=== PATIENT | male | born 1970 | race Caucasian/White ===

== ENCOUNTER 2018-07-12 13:03 | Outpatient (CLI) | payer MEDICAID, SELFPAY ==
[2018-07-16 15:04] LABS: Alternaria Tenuis IgE <0.35 kU/L; Aspergillus Fumigatus IgE <0.35 kU/L; Bermuda Grass IgE <0.35 kU/L; Cat Epithelium IgE <0.35 kU/L; Cladosporium IgE <0.35 kU/L; Cocklebur IgE <0.35 kU/L; Cockroach IgE <0.35 kU/L; Cottonwood IgE <0.35 kU/L; D Farinae IgE <0.35 kU/L; D Pteronyssinus IgE <0.35 kU/L; Dog Dander IgE <0.35 kU/L; Eastern Sycamore IgE <0.35 kU/L; Elm IgE <0.35 kU/L; Epicoccum purpurascens IgE <0.35 kU/L; Giant Ragweed IgE <0.35 kU/L; Lamb's Quarter IgE <0.35 kU/L; Oak IgE <0.35 kU/L; Penicillium chrysogenum IgE <0.35 kU/L; Red Sorrel IgE <0.35 kU/L; Rough Pigweed IgE <0.35 kU/L; Short Ragweed IgE <0.35 kU/L; Silver Birch IgE <0.35 kU/L; Stemphyllium IgE <0.35 kU/L; Timothy Grass IgE <0.35 kU/L; Walnut Tree IgE <0.35 kU/L
[2018-07-16 15:36] LABS: Wormwood IgE <0.35 kU/L
[2018-07-17 17:35] LABS: CLASS 0; Cedar Red IgE <0.10 kU/L (<0.35); Fusarium oxysporum/vasinfectum <0.35 kU/L (<0.35); Rhodotorula IgE <0.35 kU/L (<0.35)
== END 2018-07-12 13:23 ==
PROVIDERS: Visit Provider Otolaryngology Otolaryngology/Facial Plastic Surgery
DX: J31.0 Chronic rhinitis (principal)
CPT/HCPCS: 36415; 86003

== ENCOUNTER 2018-09-02 12:29 | Outpatient (REF) | payer MEDICAID, SELFPAY | END 2018-09-02 12:49 | LOC: LBN 12:29 | PROVIDERS: Visit Provider Otolaryngology Otolaryngology/Facial Plastic Surgery | DX: R69 Illness, unspecified (principal) | CPT/HCPCS: 87070; 87205 ==

== ENCOUNTER 2018-09-07 21:05 | Outpatient (REF) | payer MEDICAID, SELFPAY | END 2018-09-07 21:25 | LOC: LBN 21:05 | PROVIDERS: Visit Provider Otolaryngology Otolaryngology/Facial Plastic Surgery | DX: J31.0 Chronic rhinitis (principal); J32.1 Chronic frontal sinusitis | CPT/HCPCS: 87070; 87205 ==

== ENCOUNTER 2018-10-01 00:34 | Outpatient (CLI) | payer MEDICAID, SELFPAY ==
--- NOTE | 2018-10-01 14:21 | DI.CT_ITS ---
SYMPTOMS/DIAGNOSIS: CHRONIC RHINITIS, J31.[address]: Comparison is made with July,. There is near-complete opacification of the right frontal sinus. There is a small amount of mucus retention in the left frontal sinus. There is opacification of several ethmoid sinuses. There is mild mucus retention or mucosal thickening in both maxillary sinuses. The orbits are unremarkable. No gross abnormality is seen in the brain. IMPRESSION: Chronic sinus disease, greatest of the right frontal sinus.
--- NOTE | 2018-10-01 14:35 | DI.RAD_ITS ---
SYMPTOMS//DIAGNOSIS: COUGH, R05, POSTNASAL DRIP X 15 YEARS PA AND LATERAL CHEST: Comparison is made with August,. The heart size is normal. The lungs are normally inflated and appear clear. No infiltrate, effusion or peribronchial thickening is seen. IMPRESSION: Negative chest x-ray.
== END 2018-10-01 00:54 ==
PROVIDERS: Visit Provider Otolaryngology Otolaryngology/Facial Plastic Surgery
DX: J31.0 Chronic rhinitis (principal); J32.1 Chronic frontal sinusitis; R05 Cough; R09.82 Postnasal drip
CPT/HCPCS: 70486; 71046

== ENCOUNTER 2018-12-27 11:39 | Outpatient (REF) | payer MEDICAID, SELFPAY ==
[2018-12-27 22:01] LABS: Anion Gap 11.1 mmol/L (3-11); BUN 19 mg/dL (7-18); CO2 28.9 mmol/L (21.0-32.0); CREATININE 1.04 mg/dL (0.70-1.30); Calcium 9.2 mg/dL (8.5-10.1); Calculated LDL 163 mg/dL; Chloride 100 mmol/L (98-107); Cholesterol 233 mg/dL (50-200); Glucose 179 mg/dL (70-100); HDL Cholesterol 39 mg/dL (40-60); Potassium 3.4 mmol/L (3.5-5.1); Sodium 140 mmol/L (136-145); TSH (W/Ref FT4) 1.36 uIU/mL (0.358-3.74); Triglyceride 159 mg/dL (30-150)
== END 2018-12-27 11:59 ==
LOC: NCHCN 11:39
PROVIDERS: Visit Provider Internal Medicine
DX: I10 Essential (primary) hypertension (principal); R73.9 Hyperglycemia, unspecified
CPT/HCPCS: 80048; 80061; 83721; 84443

== ENCOUNTER 2019-01-17 10:08 | Outpatient (REF) | payer MEDICAID, SELFPAY ==
[2019-01-17 21:03] LABS: Abs Immature Grans 0.01 k/cumm (0.0-0.09); Absolute Basophil Count 0.05 k/cumm (0.0-0.2); Absolute Eosinophil Count 0.33 k/cumm (0.0-0.7); Absolute Monocyte Count 0.61 k/cumm (0.11-0.7); Absolute Neutrophil Count 5.17 k/cumm (1.2-6.7); Basophils % 0.6; HCT 47.9 % (40.0-50.0); HGB 16.4 g/dL (13.5-17.5); Immature Grans % 0.1; Lymphocytes % 24.5; Mean Corp. HGB Concentration 34.2 g/dL (32.0-36.0); Mean Corpuscular Hemoglobin 28.4 pg (27.0-33.0); Mean Corpuscular Volume 82.9 fL (80-95); Mean Platelet Volume 10.3 fL (8.0-11.0); Monocytes % 7.5; Neutrophils % 63.3; Platelet Count 295 x1000/uL (130-400); RBC 5.78 m/cumm (4.50-6.00); RBC Distribution Width 13.6 % (11.8-14.1); White Blood Cell Count 8.17 k/cumm (4.4-10.8)
[2019-01-17 21:13] LABS: C-Reactive Protein 0.42 mg/dL (0.0-0.3)
[2019-01-17 21:23] LABS: Hemoglobin A1C 7.7 % (4.5-6.2)
[2019-01-21 12:26] LABS: Lyme Ab w Rflx to Lyme Confirm Negative
== END 2019-01-17 10:28 ==
LOC: NCHCN 10:08
PROVIDERS: Visit Provider Internal Medicine
DX: R53.83 Other fatigue (principal); R73.9 Hyperglycemia, unspecified
CPT/HCPCS: 83036; 85025; 86140; 86618

== ENCOUNTER 2019-07-15 15:06 | Outpatient (REF) | payer SELFPAY ==
[2019-07-15 21:18] LABS: COMMENT (LAB VIEW ONLY) 181.75 mg/dL; Microalb ug/mg Crea 7.2 ug/mg Cr
== END 2019-07-15 15:26 ==
LOC: NCHCN 15:06
PROVIDERS: Visit Provider Internal Medicine
DX: E11.9 Type 2 diabetes mellitus without complications (principal); I10 Essential (primary) hypertension; E66.9 Obesity, unspecified; G89.29 Other chronic pain
CPT/HCPCS: 82043; 82570

== ENCOUNTER 2020-01-07 11:42 | Outpatient (REF) | payer BC, SELFPAY ==
[2020-01-07 21:35] LABS: Hemoglobin A1C 6.5 % (3.8-5.6)
[2020-01-07 21:38] LABS: ALT 89 U/L (16-63); AST 43 U/L (15-37); Albumin 3.9 g/dL (3.4-5.0); Alkaline Phosphatase 89 U/L (46-116); Anion Gap 9.3 mmol/L (3-11); BUN 12 mg/dL (7-18); Bilirubin, Total 0.4 mg/dL (0.2-1.0); CO2 29.7 mmol/L (21.0-32.0); CREATININE 0.95 mg/dL (0.70-1.30); Calcium 9.8 mg/dL (8.5-10.1); Calculated LDL 95 mg/dL (<100); Chloride 102 mmol/L (98-107); Cholesterol 155 mg/dL (<200); Glucose 154 mg/dL (74-106); HDL Cholesterol 46 mg/dL (40-60); Potassium 3.1 mmol/L (3.5-5.1); Sodium 141 mmol/L (136-145); Total Protein 7.2 g/dL (6.4-8.2); Triglyceride 72 mg/dL (<150)
== END 2020-01-07 12:02 ==
LOC: NCHCN 11:42
PROVIDERS: Visit Provider Internal Medicine
DX: E78.5 Hyperlipidemia, unspecified (principal); E11.9 Type 2 diabetes mellitus without complications; I10 Essential (primary) hypertension
CPT/HCPCS: 80053; 80061; 83036

== ENCOUNTER 2020-05-14 19:31 | Outpatient (REF) | payer MEDICAID, SELFPAY ==
[2020-05-14 21:28] LABS: Abs Immature Grans 0.03 10^3/uL (0.0-0.06); Absolute Basophil Count 0.07 10^3/uL (0.0-0.2); Absolute Lymphocyte Count 3.14 10^3/uL (1.2-3.4); Absolute Monocyte Count 0.74 10^3/uL (0.1-0.8); Absolute Neutrophil Count 6.24 10^3/uL (1.2-6.7); Basophils % 0.7; Eosinophils % 3.8; HGB 16.1 g/dL (13.5-17.5); Immature Grans % 0.3; Lymphocytes % 29.6; MCH 28.1 pg (27.0-33.0); MCHC 33.5 % (32.0-36.0); MCV 83.9 fL (80-95); MPV 10.6 fL (8.0-11.0); Neutrophils % 58.6; Nucleated RBC 0 %; Platelet Count 287 10^3/uL (130-400); RBC 5.72 10^6/uL (4.36-5.78); RDW 13.6 % (11.8-14.1); RDW-SD 41.5 fL; WBC 10.62 10^3/uL (4.4-10.8)
[2020-05-14 21:43] LABS: ALT 77 U/L (16-63); AST 36 U/L (15-37); Albumin 3.8 g/dL (3.4-5.0); Alkaline Phosphatase 92 U/L (46-116); Anion Gap 7.3 mmol/L (3-11); BUN 15 mg/dL (7-18); Bilirubin, Total 0.3 mg/dL (0.2-1.0); CO2 28.7 mmol/L (21.0-32.0); CREATININE 1.01 mg/dL (0.70-1.30); Calcium 9.4 mg/dL (8.5-10.1); Chloride 102 mmol/L (98-107); Glucose 145 mg/dL (74-106); Sodium 138 mmol/L (136-145); Total Protein 7.3 g/dL (6.4-8.2)
[2020-05-18 10:12] LABS: HBs Antibody, Quant 4.2 mIU/mL (See Note); Hepatitis B Surface Ab Negative (See Note)
[2020-05-18 10:15] LABS: Hepatitis B Surface Ag Negative (Negative)
[2020-05-18 10:47] LABS: Hepatitis C Ab w Rflx HCV PCR Negative (Negative)
== END 2020-05-14 19:51 ==
LOC: NCHCN 19:31
PROVIDERS: Visit Provider Internal Medicine
DX: I10 Essential (primary) hypertension (principal); R74.01 Elevation of levels of liver transaminase levels; E87.6 Hypokalemia
CPT/HCPCS: 80053; 86706; 86803; 87340; 85025

== ENCOUNTER 2020-06-24 18:30 | Outpatient (REF) | payer MEDICAID, SELFPAY ==
[2020-06-24 22:09] LABS: COMMENT (LAB VIEW ONLY) 150.07 mg/dL; Microalb ug/mg Crea 5.9 ug/mg Cr
== END 2020-06-24 18:50 ==
LOC: NCHCN 18:30
PROVIDERS: Visit Provider Internal Medicine
DX: E11.9 Type 2 diabetes mellitus without complications (principal)
CPT/HCPCS: 82043; 82570

== ENCOUNTER 2020-07-23 00:57 | Outpatient (CLI) | payer MEDICAID, SELFPAY ==
--- NOTE | 2020-07-23 | DI.US_ITS ---
EXAM: US ABDOMEN CLINICAL HISTORY: ELEVATED TRANSAMINASES, R74.0, ? FATTY LIVER,ELEVATED LFT'S TECHNIQUE: Ultrasound abdomen performed using standard protocol. COMPARISON: No exams were available for comparison FINDINGS: LIVER: Enlarged at 17.9 cm in length. There is extremely increased echogenicity and decreased throug h transmission consistent with severe hepatic steatosis. the posterior portions of the liver cannot be visualized. No focal liver lesions are seen.. GALLBLADDER: No evidence of cholelithiasis. No evidence of wall thickening. No pericholecystic fluid identified. CRAWFORD'S SIGN: Negative. BILIARY SYSTEM: No intrahepatic or extrahepatic biliary ductal dilation. KIDNEYS: Kidneys are symmetric in size. No evidence of renal calculi. No evidence of hydronephrosis. No renal mass or cyst identified. PANCREAS: Normal where visualized. SPLEEN: Not enlarged. ABDOMINAL AORTA AND IVC: Visualized portions normal caliber. ASCITES: None seen. IMPRESSION: Severe hepatic steatosis. DATA REPOSITORY:
== END 2020-07-23 00:58 ==
PROVIDERS: PCP Internal Medicine; Visit Provider Internal Medicine
DX: K76.0 Fatty (change of) liver, not elsewhere classified (principal)
CPT/HCPCS: 76700

== ENCOUNTER 2020-12-10 17:08 | Outpatient (REF) | payer MEDICAID, SELFPAY ==
[2020-12-10 22:02] LABS: Abs Immature Grans 0.03 10^3/uL (0.0-0.06); Absolute Basophil Count 0.07 10^3/uL (0.0-0.2); Absolute Eosinophil Count 0.16 10^3/uL (0.0-0.7); Absolute Monocyte Count 0.57 10^3/uL (0.1-0.8); Absolute Neutrophil Count 6.37 10^3/uL (1.2-6.7); Basophils % 0.8; Eosinophils % 1.7; HCT 44.9 % (40.0-50.0); HGB 15.1 g/dL (13.5-17.5); Immature Grans % 0.3; Lymphocytes % 22.6; MCH 28.7 pg (27.0-33.0); MCHC 33.6 % (32.0-36.0); MCV 85.4 fL (80-95); MPV 10.4 fL (8.0-11.0); Monocytes % 6.1; Neutrophils % 68.5; Nucleated RBC 0 %; Platelet Count 284 10^3/uL (130-400); RBC 5.26 10^6/uL (4.36-5.78); RDW 13.3 % (11.8-14.1); RDW-SD 41.8 fL
[2020-12-10 22:07] LABS: Iron 95 ug/dL (65-175); Total Iron Binding Capacity 318 ug/dL (250-450); Transferrin Sat 30 % (20-55)
[2020-12-10 22:13] LABS: ALT 106 U/L (16-63); AST 50 U/L (15-37); Albumin 3.8 g/dL (3.4-5.0); Alkaline Phosphatase 85 U/L (46-116); Bilirubin, Direct 0.1 mg/dL (0.0-0.2); Bilirubin, Total 0.5 mg/dL (0.2-1.0); Total Protein 7.1 g/dL (6.4-8.2)
[2020-12-10 22:22] LABS: Hemoglobin A1C 6.4 % (<5.7)
[2020-12-10 22:36] LABS: Ferritin 170 ng/mL (26-388)
[2020-12-15 08:55] LABS: Alpha 1 Antitrypsin,Serum 143 mg/dL (90-200)
[2020-12-15 08:56] LABS: Hep A Total Ab w Rflx IgM Negative (Negative); Hep B Core Antibody Negative (Negative); Hepatitis B Surface Ag Negative (Negative)
[2020-12-15 08:58] LABS: ANA Interpretation Positive (Negative); ANA Titer Pattern 1:80 Speckled; HBs Antibody, Quant 30.9 mIU/mL (See Note); Hepatitis B Surface Ab Positive (See Note)
[2020-12-15 12:21] LABS: Ceruloplasmin 26.2 mg/dL
[2020-12-15 13:41] LABS: Smooth Muscle Ab Screen Negative (Negative)
== END 2020-12-10 17:09 | disposition home or self-care (01) ==
LOC: LBN 17:08
PROVIDERS: Physician Assistant Medical; PCP Internal Medicine; Visit Provider Internal Medicine
DX: R74.8 Abnormal levels of other serum enzymes (principal); K76.0 Fatty (change of) liver, not elsewhere classified; E11.9 Type 2 diabetes mellitus without complications; Z11.59 Encounter for screening for other viral diseases
CPT/HCPCS: 80076; 82390; 86704; 86706; 86709; 87340; 82103; 82728; 83036; 83540; 83550; 85025; 86038; 86255

== ENCOUNTER 2021-06-07 21:41 | Outpatient (REF) | payer MEDICAID, SELFPAY ==
[2021-06-07 21:20] LABS: COMMENT (LAB VIEW ONLY) 225.56 mg/dL; Microalb ug/mg Crea 9.6 ug/mg Cr
== END 2021-06-07 21:42 | disposition home or self-care (01) ==
LOC: NCHCN 21:41
PROVIDERS: PCP Internal Medicine; Visit Provider Internal Medicine
DX: E11.9 Type 2 diabetes mellitus without complications (principal)
CPT/HCPCS: 82043; 82570

== ENCOUNTER 2021-09-24 08:49 | Outpatient (REF) | payer MEDICAID, SELFPAY ==
[2021-09-24 21:35] LABS: ALT 50 U/L (16-63); AST 36 U/L (15-37); Alkaline Phosphatase 91 U/L (46-116); Anion Gap 8.7 mmol/L (3-11); BUN 16 mg/dL (7-18); Bilirubin, Total 0.6 mg/dL (0.2-1.0); CO2 28.3 mmol/L (21.0-32.0); CREATININE 0.9 mg/dL (0.70-1.30); Calcium 9.3 mg/dL (8.5-10.1); Calculated LDL 93 mg/dL (<100); Chloride 104 mmol/L (98-107); Cholesterol 158 mg/dL (<200); Glucose 144 mg/dL (74-106); HDL Cholesterol 51 mg/dL (40-60); Potassium 4.3 mmol/L (3.5-5.1); Sodium 141 mmol/L (136-145); Total Protein 7.2 g/dL (6.4-8.2); Triglyceride 73 mg/dL (<150)
[2021-10-04 10:49] LABS: Testosterone, Free 8.86 ng/dL (4.26-16.4); Testosterone, Total 385 ng/dL (240-950)
== END 2021-09-24 08:50 | disposition home or self-care (01) ==
LOC: NCHCN 08:49
PROVIDERS: PCP Internal Medicine; Visit Provider Internal Medicine
DX: E11.9 Type 2 diabetes mellitus without complications (principal); K76.0 Fatty (change of) liver, not elsewhere classified; R68.82 Decreased libido
CPT/HCPCS: 80053; 80061; 84402; 84403

== ENCOUNTER 2022-12-30 15:22 | Outpatient (REF) | payer MEDICAID, SELFPAY ==
--- OUTSIDE RECORDS SUMMARY | 2022-12-30 15:25 | XMS_ITS | CCD ---
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 Allergies Unknown or Not Available. Procedures Unknown or Not Available. History of Immunizations Unknown or Not Available. Problems Unknown or Not Available. Results Unknown or Not Available. Active Medications Unknown or Not Available. Medications Administered During Visit Unknown or Not Available. Encounters Encounter Diagnosis Diagnosis Code Start Date Pain in left knee [id number] 05/24/2021 Social History Smoking Status Code Start Date End Date Never smoker [id number] Patient Decision Aids Unknown or Not Available. Discharge Instructions You were admitted to [facility] on 05/24/2021 09:35 with a principal diagnosis of Pain in left knee You were discharged from [facility] on 05/24/2021 09:35 Should you have any questions prior to discharge, please contact a member of your healthcare team. If you have left the hospital and have any questions, please contact your primary care physician. Chief Complaint and Reason For Visit Unknown or Not Available. Function Status Unknown or Not Available. Plan of Care Unknown or Not Available. Referral/Transition of Care Unknown or Not Available.
[2022-12-30 21:14] LABS: HCT 44.1 % (40.0-50.0); HGB 15.3 g/dL (13.5-17.5); MCH 28.8 pg (27.0-33.0); MCHC 34.7 % (32.0-36.0); MCV 83 fL (80-95); MPV 9.8 fL (8.0-11.0); Platelet Count 278 10^3/uL (130-400); RBC 5.31 10^6/uL (4.36-5.78); RDW 12.9 % (11.8-14.1); RDW-SD 38.9 fL; WBC 8.14 10^3/uL (4.4-10.8)
[2022-12-30 21:31] LABS: Hemoglobin A1C 6.2 % (<5.7)
[2022-12-30 21:51] LABS: ALT 32 U/L (16-63); AST 33 U/L (15-37); Albumin 3.8 g/dL (3.4-5.0); Alkaline Phosphatase 79 U/L (46-116); Anion Gap 9.8 mmol/L (3-11); BUN 13 mg/dL (7-18); Bilirubin, Total 0.5 mg/dL (0.2-1.0); CO2 26.2 mmol/L (21.0-32.0); CREATININE 0.9 mg/dL (0.70-1.30); Calcium 9.2 mg/dL (8.5-10.1); Chloride 105 mmol/L (98-107); Estimated GFR 104.05 (mL/min/1.73m2); Glucose 111 mg/dL (74-106); Potassium 3.5 mmol/L (3.5-5.1); Sodium 141 mmol/L (136-145); Total Protein 7.2 g/dL (6.4-8.2); Vitamin B12 537 pg/mL (193-986)
== END 2022-12-30 15:23 | disposition home or self-care (01) ==
LOC: NCHCN 15:22
PROVIDERS: PCP Internal Medicine; Visit Provider Internal Medicine
DX: E78.5 Hyperlipidemia, unspecified (principal); E11.9 Type 2 diabetes mellitus without complications; I10 Essential (primary) hypertension; Z79.899 Other long term (current) drug therapy
CPT/HCPCS: 80053; 85027; 82607; 83036

== ENCOUNTER 2023-09-21 18:04 | Outpatient (REF) | payer MEDICAID, SELFPAY ==
[2023-09-21 20:48] LABS: HCT 45.4 % (40.0-50.0); HGB 15.8 g/dL (13.5-17.5); MCH 29.2 pg (27.0-33.0); MCHC 34.8 % (32.0-36.0); MCV 84 fL (80-95); MPV 9.9 fL (8.0-11.0); Platelet Count 268 10^3/uL (130-400); RBC 5.41 10^6/uL (4.36-5.78); RDW 13.2 % (11.8-14.1); WBC 9.49 10^3/uL (4.4-10.8)
[2023-09-21 21:08] LABS: COMMENT (LAB VIEW ONLY) 131.81 mg/dL; Microalb ug/mg Crea 4.7 ug/mg Cr
[2023-09-21 21:09] LABS: ALT 51 U/L (16-63); AST 37 U/L (15-37); Albumin 3.9 g/dL (3.4-5.0); Alkaline Phosphatase 85 U/L (46-116); Anion Gap 9.7 mmol/L (3-11); BUN 16 mg/dL (7-18); Bilirubin, Total 0.3 mg/dL (0.2-1.0); CO2 28.3 mmol/L (21.0-32.0); Calcium 9.7 mg/dL (8.5-10.1); Chloride 102 mmol/L (98-107); Estimated GFR 91.69 (mL/min/1.73m2); Glucose 97 mg/dL (74-106); Potassium 4.1 mmol/L (3.5-5.1); Sodium 140 mmol/L (136-145); Total Protein 7.9 g/dL (6.4-8.2)
== END 2023-09-21 18:05 | disposition home or self-care (01) ==
LOC: NCHCN 18:04
PROVIDERS: PCP Internal Medicine; Visit Provider Internal Medicine
DX: E11.9 Type 2 diabetes mellitus without complications (principal); I10 Essential (primary) hypertension
CPT/HCPCS: 80053; 85027; 82043; 82570

== ENCOUNTER 2024-12-19 16:04 | Outpatient (REF) | payer MEDICAID, SELFPAY ==
[2024-12-19 19:27] LABS: HCT 47.2 % (40.0-50.0); HGB 16.7 g/dL (13.5-17.5); MCH 29.3 pg (27.0-33.0); MCHC 35.4 % (32.0-36.0); MCV 83 fL (80-95); MPV 9.9 fL (8.0-11.0); Platelet Count 266 10^3/uL (130-400); RBC 5.70 10^6/uL (4.36-5.78); RDW 12.8 % (11.8-14.1); RDW-SD 38.4 fL; WBC 11.03 10^3/uL (4.4-10.8)
[2024-12-19 19:38] LABS: ALT 63 U/L (16-63); AST 29 U/L (15-37); Albumin 3.7 g/dL (3.4-5.0); Alkaline Phosphatase 105 U/L (46-116); Anion Gap 10.2 mmol/L (3-11); BUN 21 mg/dL (7-18); Bilirubin, Total 0.4 mg/dL (0.2-1.0); CO2 27.8 mmol/L (21.0-32.0); Calcium 9.6 mg/dL (8.5-10.1); Calculated LDL 146 mg/dL (<100); Chloride 97 mmol/L (98-107); Cholesterol 259 mg/dL (<200); Estimated GFR 80.77 (mL/min/1.73m2); Glucose 454 mg/dL (74-106); HDL Cholesterol 51 mg/dL (>or=40); Potassium 3.9 mmol/L (3.5-5.1); Sodium 135 mmol/L (136-145); Total Protein 7.6 g/dL (6.4-8.2); Triglyceride 311 mg/dL (<150)
== END 2024-12-19 16:05 | disposition home or self-care (01) ==
LOC: NCHCN 16:04
PROVIDERS: PCP Internal Medicine; Visit Provider Internal Medicine
DX: E11.9 Type 2 diabetes mellitus without complications (principal); I10 Essential (primary) hypertension; E78.5 Hyperlipidemia, unspecified
CPT/HCPCS: 80053; 80061; 85027

== ENCOUNTER 2025-01-07 13:17 | Outpatient (REF) | payer MEDICAID, SELFPAY ==
[2025-01-07 16:12] LABS: ALT 80 U/L (16-63); AST 52 U/L (15-37); Albumin 4.1 g/dL (3.4-5.0); Alkaline Phosphatase 93 U/L (46-116); Anion Gap 7.8 mmol/L (3-11); BUN 22 mg/dL (7-18); Bilirubin, Total 0.9 mg/dL (0.2-1.0); CO2 29.2 mmol/L (21.0-32.0); Calcium 9.8 mg/dL (8.5-10.1); Chloride 92 mmol/L (98-107); Estimated GFR 72.76 (mL/min/1.73m2); Potassium 4.0 mmol/L (3.5-5.1); Sodium 129 mmol/L (136-145); Total Protein 7.9 g/dL (6.4-8.2)
[2025-01-07 16:19] LABS: Glucose 554 mg/dL (74-106)
[2025-01-07 16:47] LABS: Hemoglobin A1C 11.1 % (<5.7)
== END 2025-01-07 13:18 | disposition home or self-care (01) ==
LOC: NCHCN 13:17
PROVIDERS: PCP Internal Medicine; Visit Provider Physician Assistant
DX: E11.9 Type 2 diabetes mellitus without complications (principal)
CPT/HCPCS: 80053; 83036

== ENCOUNTER 2025-01-23 16:00 | Outpatient (REF) | payer MEDICAID, SELFPAY ==
[2025-01-23 20:21] LABS: COMMENT (LAB VIEW ONLY) 106.93 mg/dL; Microalb ug/mg Crea 10.1 ug/mg Cr
== END 2025-01-23 16:01 | disposition home or self-care (01) ==
LOC: NCHCN 16:00
PROVIDERS: PCP Internal Medicine; Visit Provider Internal Medicine
DX: R73.9 Hyperglycemia, unspecified (principal)
CPT/HCPCS: 82043; 82570